=== PATIENT | male | born 2000 | race Two or more races ===

== ENCOUNTER 2025-09-05 18:55 | Emergency (ER) | payer SELFPAY ==
[2025-09-05 18:58] VITALS: BMI 35.1
[2025-09-05 19:24] VITALS: BP 137/89; PULSE 75; RESP 18; TEMP 37; O2SAT 98
[2025-09-05] MEDS: MethylPREDNISolone SOD SUCC 62.5 MG/ML 2ML VIAL 125 MG IM (20:29)
[2025-09-05] MEDS: FAMOTIDINE 20 MG TABLET 40 MG PO (20:29)
--- NOTE | 2025-09-06 16:45 | PD.EDALLER ---
ED Allergic Reaction RME/HPI General Chief complaint: Allergic Reaction Stated complaint: allergic reaction Time Seen by Provider: 09/05/25 19:00 Arrival date/time: 09/05/25 18:55 This is a case of 25-year-old male with no medical history came in in the emergency room due to generalized maculopapular urticarial rashes with swelling on the upper lip for 2 days after started on Flonase persistence of the symptoms this patient decided to sought consult here in the emergency room patient have history of tongue mass/cancer seeing oncologist and ENT specialist no drooling of saliva patient can speak full sentences no shortness of breath persistence of the symptoms this patient decided to start consult here in the emergency room Limitations: no limitations Related Data Previous Rx's ?Medication ?Instructions ?Recorded hydrocodone 5 mg-acetaminophen 325 1 tab PO Q4H PRN pain #10 tabs 03/23/19 mg tablet ([place]) diphenhydramine HCl 25 mg capsule 25 mg PO TID PRN allergic reaction 09/05/25 (Benadryl) #20 caps famotidine 20 mg tablet (Pepcid) 20 mg PO BID #10 tabs 09/05/25 prednisone 20 mg tablet 20 mg PO BID 5 days #10 tabs 09/05/25 Allergies Allergy/AdvReac Type Severity Reaction Status Date / Time No Known Allergies Allergy Verified 09/05/25 19:02 Review of Systems Review of Systems Systems Reviewed: All systems reviewed, normal except as documented Past Medical History Past Medical History CARDIAC: Negative Congestive Heart Failure RESPIRATORY: Negative Chronic Obstructive Pulmonary Disease (COPD) GENITOURINARY: Negative Renal Disease ENDOCRINE: Negative Diabetes Mellitus Type 1 or Diabetes Mellitus Type 2 Social History SMOKING STATUS: Never smoker ED Exam General Limitations: Present no limitations General appearance: Present alert, in no apparent distress and other (Patient is awake alert oriented not in distress nontoxic looking well-hydrated well-nourished) Head Head exam: Present atraumatic, normocephalic and normal inspection Eye Eye exam: Present normal appearance, PERRL and EOMI ENT ENT exam: Present normal exam, normal oropharynx, mucous membranes moist and other (Patient noted to have mild swelling on the upper lip patient tongue have mass but no drooling of saliva patient can speak full sentences no muffled voice no hot potato voice) Neck Neck exam: Present normal inspection, full ROM and trachea midline; Absent tenderness, meningismus, lymphadenopathy or thyromegaly Chest Chest inspection: Present normal inspection and symmetric chest wall rise; Absent tenderness Respiratory Respiratory exam: Present normal lung sounds bilaterally and other; Absent respiratory distress, wheezes, stridor, accessory muscle use or prolonged expiratory phase Cardiovascular Cardiovascular exam: Present regular rate, normal rhythm and normal heart sounds; Absent bradycardia, tachycardia, irregular rhythm, systolic murmur or diastolic murmur Abdominal Exam Abdominal exam: Present soft and normal bowel sounds; Absent distention, tenderness, guarding, rebound, rigidity, diminished bowel sounds, hyperactive bowel sounds, hypoactive bowel sounds or organomegaly Extremities Exam Extremities exam: Present normal inspection and full ROM Back Exam Back exam: Present normal inspection and full ROM Neurological Exam Neurological exam: Present alert, oriented X3, CN II-XII intact, normal gait and reflexes normal; Absent motor sensory deficit Psychiatric Psychiatric exam: Present normal affect and normal mood Skin Skin exam: Present warm, dry, intact, normal color and other (Noted maculopapular urticarial rashes on the chest abdomen back both upper and both lower extremities no abscess no cellulitis nonblanching rashes) Course Quality Measures none Orders Category Date Time Status DiphenhydrAMINE INJ [Benadryl Inj] Med 09/05/25 19:33 Discontinued 50 mg IM X1 ONE Famotidine [Pepcid] Med 09/05/25 19:33 Discontinued 40 mg PO X1 ONE MethylPREDNISolone.* [SoluMEDROL Inj] Med 09/05/25 19:33 Discontinued 125 mg IM X1 ONE Vital Signs Vital signs: Vital Signs Temperature 98.6 F 09/05/25 19:24 Pulse Rate 75 09/05/25 19:24 Respiratory Rate 18 09/05/25 19:24 Blood Pressure 137/89 H 09/05/25 19:24 Pulse Oximetry (%) 98 09/05/25 19:24 Oxygen Delivery Method Room Air 09/05/25 19:24 Oxygen saturation is 98% in room air Allergic Reaction MDM Narrative MDM Narrative:: This is a case of 25-year-old male with no medical history came in in the emergency room due to generalized maculopapular urticarial rashes with swelling on the upper lip for 2 days after started on Flonase persistence of the symptoms this patient decided to sought consult here in the emergency room patient have history of tongue mass/cancer seeing oncologist and ENT specialist no drooling of saliva patient can speak full sentences no shortness of breath persistence of the symptoms this patient decided to start consult here in the emergency room physical examination patient is awake alert oriented not in distress nontoxic looking well-hydrated well-nourished patient noted to have a maculopapular urticarial rashes on the chest abdomen back both upper and both lower extremities patient noted to have mild swelling on the upper lip no drooling of saliva no muffled voice no hot potato voice no shortness of breath lungs sound is clear no crackles no rales no rhonchi no retraction no stridor no signs and symptoms of angioedema no signs and symptoms of anaphylaxis patient was given Solu-Medrol IM Benadryl and Pepcid after 1 hour patient was reassessed rash is subsided no itchiness noted swelling was resolved patient will follow-up with PCP in 2 days for reevaluation and to be referred to point of care specialist for allergy testing he was advised to stop the Flonase and follow-up with his ENT specialist for further evaluation and treatment worsening persistent recurrence of the symptoms return precaution in the ER was advised Patient was discharged with comfortable condition walking with stable gait. Patient verbalized no further complains explained diagnosis and answered patient question. Patient is comfortable with the proposed management plan including the need to follow up with his/her primary care physician and any specialist if applicable Discussed patient for any urgent condition or worsening sx, He/She needed to go to emergency room immediately or call 911. Patient acknowledge the responsibility to follow up as instructed and to monitor her/his symptoms. For any persistence of the symptoms for more than 3-5 days return precaution advised. Discussed the result of the test and was given printed discharge instruction Patient data External records reviewed:: [facility] previous records Clinical information provided by:: patient Social determinants that could affect healthcare access:: none Patient has the following chronic illnesses:: None How is presenting disease/condition affected by chronic disease/condition?: no chronic disease Evaluation data The following diagnostics were reviewed and interpreted by me:: other (specify) (None) Lab and/or radiology exams considered but not ordered:: None Interpretation Summary: None Medications / Prescriptions Medications or Prescriptions considered but not ordered:: Given Medication administrations:: Medication Administration History Discontinued Medications Diphenhydramine HCl (Diphenhydramine Inj 50 Mg/Ml Vial) 50 mg IM X1 ONE Stop: 09/05/25 19:34 Last Admin: 09/05/25 20:29 Dose: 50 mg Documented By: OA Famotidine (Famotidine 20 Mg Tablet) 40 mg PO X1 ONE Stop: 09/05/25 19:34 Last Admin: 09/05/25 20:29 Dose: 40 mg Documented By: OA Methylprednisolone Sodium Succinate (Methylprednisolone Sod Succ 62.5 Mg/Ml 2ml Vial) 125 mg IM X1 ONE Stop: 09/05/25 19:34 Last Admin: 09/05/25 20:29 Dose: 125 mg Documented By: OA Given Consultations Consultation(s) initiated? (list below): No Diagnosis Differential Diagnosis allergic reaction: allergic reaction and urticaria Most likely diagnosis given after review of the tests above:: Acute allergic reaction Admission Indicated Admission indicated?: not indicated Explain why admission is indicated or not indicated:: Not indicated Admission Request Was there a request for admission?: No Admission Attestation Admission request attestation: Not indicated Disposition Plan Disposition Plan: Discharge Discharge Attestation Discharge Attestation: The patient and all family members were given an opportunity to ask questions and understood the discharge instructions. Discharge instructions specifically effects, indications for sooner follow up or return to the emergency department, and the expected course of current diagnosis. Patient condition: Stable Discharge Plan Plan Patient Disposition: HOME (Self Care) Patient condition on transfer: Stable Prescriptions/Referrals Prescriptions/Med Rec: New diphenhydramine HCl [Benadryl] 25 mg capsule 25 mg PO TID PRN (Reason: allergic reaction) Qty: 20 0RF prednisone 20 mg tablet 20 mg PO BID 5 Days Qty: 10 0RF Rx Instructions: start tomorrow famotidine [Pepcid] 20 mg tablet 20 mg PO BID Qty: 10 0RF No Action hydrocodone-acetaminophen [[place]] 5-325 mg tablet 1 tab PO Q4H MDD 6 PRN (Reason: pain) Qty: 10 0RF Problem List Clinical Impression: Acute allergic reaction Patient/Caregiver Discharge Instructions Education Materials: ED Medicine Reaction: Allergic, Allergy Overview Additional Instructions: Follow-up with your primary care physician in 2 days for reevaluation and to be referred to point of care specialist for allergy testing recurrence persistent worsening symptoms or any emergent concern call 911 or go to the nearest emergency room take your medication as directed keep hydrated Print Language: [place] Stand Alone Forms: [place] Info., Patient Portal Info Letter PA/[employer] MACH[employer] ENGINE MECHANIC Supervising Physician PA/[employer] MACHIN[employer] ENGINE MECHANIC Supervising Physician: Dr. Bradshaw
== END 2025-09-05 21:25 | disposition home or self-care (01) ==
LOC: SERX 21:01
PROVIDERS: Emergency Provider Emergency Medicine; PCP Family Medicine
DX: L50.9 Urticaria, unspecified (principal)
CPT/HCPCS: 96372; 99282; J1200; J2919; A9270